=== PATIENT | male | born 1965 | race Caucasian/White ===

== ENCOUNTER 2018-12-08 09:55 | Emergency (ER) | payer SELFPAY ==
[~2018-12-08] VITALS: Ht 175.3 cm; Wt 102.6 kg
[~2018-12-08 09:55] MED LIST: LISI-170 PO
[2018-12-08 10:29] VITALS: BP 123/85
--- NOTE | 2018-12-08 11:08 | NUR ---
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
[2018-12-08 11:56] LABS: BASOPHILS # (AUTO) 0.02 x10^3/uL (0-0.1); BASOPHILS % (AUTO) 0 % (0-1); EOSINOPHILS # (AUTO) 0.01 x10^3/uL (0-0.4); EOSINOPHILS % (AUTO) 0 % (1-7); LYMPHOCYTES # (AUTO) 0.61 x10^3/uL (1-3.4); LYMPHOCYTES % (AUTO) 8 % (22-44); MD NO; MEAN CORPUSCULAR HEMOGLOBIN 34.2 pg (27.5-34.5); MEAN CORPUSCULAR HGB CONC 33.8 g/dL (33.2-36.2); MEAN CORPUSCULAR VOLUME 101.2 fL (81-97); MEAN PLATELET VOLUME 8.3 fL (7.4-10.4); MONOCYTES # (AUTO) 0.82 x10^3/uL (0.2-0.8); MONOCYTES % (AUTO) 11 % (2-9); NEUTROPHILS # (AUTO) 6.31 x10^3/uL (1.8-6.8); NEUTROPHILS % (AUTO) 81 % (42-75); PLATELET COUNT 159 x10^3/uL (130-400); RED BLOOD COUNT 4.51 x10^6/uL (4.38-5.82)
[2018-12-08 12:05] LABS: ALBUMIN 2.1 g/dL (3.4-5.0); ANION GAP 10 mmol/L (5-15); CALCIUM 7.8 mg/dL (8.5-10.1); CHLORIDE 100 mmol/L (98-107)
[2018-12-08 12:07] LABS: ALANINE AMINOTRANSFERASE 29 U/L (12-78); ALKALINE PHOSPHATASE 324 U/L (45-117); BILIRUBIN,TOTAL 2.5 mg/dL (0.2-1.0); CREATININE 0.69 mg/dL (0.7-1.3); TOTAL PROTEIN 7.9 g/dL (6.4-8.2)
[2018-12-08 12:27] LABS: INTERNATIONAL NORMALIZED RATIO 1.23 (0.93-1.1); PROTHROMBIN TIME 12.8 Seconds (9.6-11.5)
--- NOTE | 2018-12-08 12:53 | NUR ---
REPORT TO LEONORA FARAH WHO ASSUMED CARE OF PT.
[2018-12-08 12:55] LABS: MICROSCOPIC INDICATED
[2018-12-08 13:03] LABS: CULTURE INDICATED? YES
--- NOTE | 2018-12-08 13:25 | NUR ---
Patient/Caregiver given discharge instructions and they have confirmed that they understand the instructions. Patient ambulatory with steady gait.
== END 2018-12-08 13:33 | disposition home or self-care (01) ==
LOC: ED 13:03
DX: K70.30 Alcoholic cirrhosis of liver without ascites (principal); F10.220 Alcohol dependence with intoxication, uncomplicated; E11.9 Type 2 diabetes mellitus without complications; I10 Essential (primary) hypertension; J45.909 Unspecified asthma, uncomplicated; M10.9 Gout, unspecified
CPT/HCPCS: 36415; 74022; 76700; 80053; 80307; 81001; 82140; 83690; 85025; 85610; 85730; 87086; 99284

== ENCOUNTER 2018-12-20 17:13 | Emergency (ER) | payer SELFPAY ==
[~2018-12-20] VITALS: Ht 175.3 cm; Wt 103.0 kg
[2018-12-20 17:35] VITALS: BP 123/95
[2018-12-20 17:45] LABS: BASOPHILS # (AUTO) 0.04 x10^3/uL (0-0.1); BASOPHILS % (AUTO) 1 % (0-1); EOSINOPHILS # (AUTO) 0.05 x10^3/uL (0-0.4); EOSINOPHILS % (AUTO) 1 % (1-7); LYMPHOCYTES # (AUTO) 1.29 x10^3/uL (1-3.4); LYMPHOCYTES % (AUTO) 17 % (22-44); MD NO; MEAN CORPUSCULAR HEMOGLOBIN 35.3 pg (27.5-34.5); MEAN CORPUSCULAR HGB CONC 34.8 g/dL (33.2-36.2); MEAN CORPUSCULAR VOLUME 101.6 fL (81-97); MEAN PLATELET VOLUME 7.6 fL (7.4-10.4); MONOCYTES # (AUTO) 0.77 x10^3/uL (0.2-0.8); MONOCYTES % (AUTO) 10 % (2-9); NEUTROPHILS # (AUTO) 5.59 x10^3/uL (1.8-6.8); NEUTROPHILS % (AUTO) 72 % (42-75); PLATELET COUNT 185 x10^3/uL (130-400); RED BLOOD COUNT 4.29 x10^6/uL (4.38-5.82); RED CELL DISTRIBUTION WIDTH 15.8 % (9.4-14.8)
[2018-12-20 17:56] LABS: INTERNATIONAL NORMALIZED RATIO 1.24 (0.93-1.1); PROTHROMBIN TIME 12.9 Seconds (9.6-11.5)
[2018-12-20 18:02] LABS: ALANINE AMINOTRANSFERASE 38 U/L (12-78); ANION GAP 12 mmol/L (5-15); CALCIUM 7.2 mg/dL (8.5-10.1); CHLORIDE 96 mmol/L (98-107); CREATININE 1.21 mg/dL (0.7-1.3)
[2018-12-20 18:06] LABS: ALKALINE PHOSPHATASE 414 U/L (45-117); BILIRUBIN,TOTAL 2.5 mg/dL (0.2-1.0); TOTAL PROTEIN 7.7 g/dL (6.4-8.2)
--- NOTE | 2018-12-20 18:23 | NUR ---
PATIENT TO RAD FOR PROCEDURE
--- NOTE | 2018-12-20 19:05 | NUR ---
REPORT TO FRENCH LEA
--- NOTE | 2018-12-20 19:20 | NUR ---
Report from Sharonda LEA, pt in IR still
--- NOTE | 2018-12-20 19:45 | NUR ---
Pt eager for discharge, states "I just want to go home" aware, pts hr down from inital reading. Pt refuses wheelchair to discharge desk "I just need to move around and walk" Pt ambulated without assistance
== END 2018-12-20 19:58 | disposition home or self-care (01) ==
LOC: ED 18:15
DX: K70.31 Alcoholic cirrhosis of liver with ascites (principal); R10.84 Generalized abdominal pain
CPT/HCPCS: 36415; 49083; 71045; 80053; 83880; 85025; 85610; 85730; 93005; 99284; 99285